=== PATIENT | female | born 1965 | race Caucasian/White ===

== ENCOUNTER 2018-01-04 08:24 | Day surgery (SDC) | payer OTHER ==
[~2018-01-04] VITALS: Ht 167.6 cm; Wt 83.5 kg
[2018-01-04] MEDS ORDERED: GLIP5TAB13 PO (10:17)
[2018-01-04] MEDS ORDERED: ATOR10TA PO (10:17)
[2018-01-04] MEDS ORDERED: SYN.075 PO (10:17)
[2018-01-04] MEDS ORDERED: LISI10TA11 PO (10:17)
[2018-01-04] MEDS ORDERED: OMEP20TC12 PO (10:17)
[2018-01-04] MEDS ORDERED: METF850T PO (10:17)
[2018-01-04] MEDS ORDERED: INSU100S22 SUBQ (10:17)
[2018-01-04] MEDS ORDERED: KETOROLAC 15 MG/ML VIAL IVP ONE (11:15)
[2018-01-04] MEDS ORDERED: SEVOFLURANE 250 ML BTL INH ONE (11:15)
[2018-01-04] MEDS ORDERED: KETAMINE 500 MG/5 ML VIAL IVP ONE (11:15)
[2018-01-04] MEDS ORDERED: ONDANSETRON 4 MG/2 ML VIAL IVP ONE (11:15)
[2018-01-04] MEDS ORDERED: fentaNYL 0.05 MG/ML VIAL ONE (11:19)
[2018-01-04] MEDS ORDERED: LACTATED RINGERS 1,000 ML IV SCH (12:12)
[2018-01-04] MEDS ORDERED: IBUPROFEN 600 MG TAB PO PRN (12:15)
== END 2018-01-04 13:35 | disposition home or self-care (01) ==
LOC: MMU 08:24 → MDS 08:24
PROVIDERS: ATTEND Obstetrics & Gynecology
DX: N95.0 Postmenopausal bleeding (principal); I10 Essential (primary) hypertension; E03.9 Hypothyroidism, unspecified; E78.5 Hyperlipidemia, unspecified; E11.9 Type 2 diabetes mellitus without complications; Z98.890 Other specified postprocedural states; Z79.899 Other long term (current) drug therapy
CPT/HCPCS: 58120; 71045; 82948; 93005; J1050; J1885; J2405; J3010; J7030; J7120